=== PATIENT | male | born 1965 | race Caucasian/White ===

== ENCOUNTER 2016-09-07 09:50 | Outpatient (CLI) | payer MEDICARE ==
--- NOTE | 2016-09-07 12:15 | Magnetic Resonance Report ---
MRI LUMBAR SPINE WITHOUT CONTRAST INDICATION: Spondylosis without myelopathy or radiculopathy. COMPARISON: 08/19/2015 FINDINGS: Noncontrast multiplanar and multisequence MRI of the lumbar spine again demonstrates normal vertebral body stature and alignment. Normal conus medullaris terminating behind L2. Mild mid to lower lumbar disc degeneration. Normal paraspinal soft tissues. On the obtained axial images: T12-L1 through L3-L4 are unremarkable. AP thecal sac caliber at L3-L4 is 1.3 cm. L4-L5 suggests slight disc narrowing and loss of disc signal. Slight diffuse disc bulge though remains predominantly ventral epidural. Approximately 0.3 cm AP x 1 cm transverse midline annular fissure again noted. No significant spinal stenosis or exiting nerve root compression. AP thecal sac caliber is 1.1 cm. L5-S1 demonstrates similar changes at the level above with a 0.5 cm midline annular tear. No spinal stenosis or exiting nerve root compression. CONCLUSION: No significant interval change with L4-L5 and L5-S1 disc degeneration and annular tears, as described. Thank you for the opportunity to participate in this patient's care.
--- NOTE | 2016-09-07 13:31 | Magnetic Resonance Report ---
MRI CERVICAL SPINE WITHOUT CONTRAST INDICATION: Radiculopathy, cervical region. COMPARISON: 11/10/2014 CT. FINDINGS: Noncontrast multiplanar and multisequence MRI of the cervical spine demonstrates normal vertebral body stature, alignment and marrow signal. Intact craniocervical articulation. Normal cervicomedullary junction. No Chiari malformation. Grossly preserved discs, though slight disc bulge at C5-C6 approaches/minimally indents the cord in the midline as on axial series 3, image 18. AP cord caliber is 7 mm. Bilateral facet arthropathy at this level also suspected. Remainder more superior and inferior imaged levels are unremarkable. Normal paraspinal soft tissues. CONCLUSION: Mild C5-C6 degenerative changes; otherwise unremarkable exam. Neurologic territorial correlation may also be obtained. Thank you for the opportunity to participate in this patient's care.
== END 2016-09-07 09:51 | disposition home or self-care (01) ==
LOC: MRI 09:50
PROVIDERS: ATTEND Pain Medicine Interventional Pain Medicine
DX: M47.892 Other spondylosis, cervical region (principal); M47.816 Spondylosis without myelopathy or radiculopathy, lumbar region; M54.12 Radiculopathy, cervical region; I10 Essential (primary) hypertension; J44.9 Chronic obstructive pulmonary disease, unspecified; F41.9 Anxiety disorder, unspecified; F17.200 Nicotine dependence, unspecified, uncomplicated
CPT/HCPCS: 72141; 72148

== ENCOUNTER 2020-10-12 19:14 | Emergency (ER) | payer MEDICARE ==
[2020-10-12 19:47] VITALS: BP 145/82
[2020-10-12] MEDS ORDERED: LORazepam 2 MG/ML VIAL IV ONE (20:16)
[2020-10-12 20:26] LABS: Basophils % (Auto) 0.2 % (0.0-1.8); Eosinophils # (Auto) 0.1 K/mm3 (0.0-0.4); Eosinophils % (Auto) 1.6 % (0.0-4.3); Hematocrit 45.3 % (35.5-45.6); Hemoglobin 15.4 gm/dl (11.8-15.2); Lymphocytes # (Auto) 1.4 K/mm3 (1.2-5.4); Lymphocytes % (Auto) 25.1 % (13.4-35.0); Mean Corpuscular HGB Conc 34 % (32-34); Mean Corpuscular Volume 100 fl (84-94); Monocytes # (Auto) 0.6 K/mm3 (0.0-0.8); Monocytes % (Auto) 11.2 % (0.0-7.3); Platelet Count 186 K/mm3 (140-440); Red Blood Count 4.55 M/mm3 (3.65-5.03); Red Cell Distribution Width 14.1 % (13.2-15.2)
--- NOTE | 2020-10-12 20:30 | XRay Report ---
CHEST 1 VIEW 2018 INDICATION / CLINICAL INFORMATION: Chest Pain COMPARISON: 10/24/2018 FINDINGS: SUPPORT DEVICES: None HEART / MEDIASTINUM: No significant abnormality LUNGS / PLEURA: Moderate bilateral somewhat patchy pulmonary edema/infiltrates are seen, worse than o n the study in 2019. Findings could represent pulmonary edema but the heart is not enlarged and bilat eral pneumonitis is certainly a consideration. No pneumothorax. ADDITIONAL FINDINGS: No significant additional findings. Signer Name: Leonidas Lopez MD Signed: 10/12/2020 8:26 PM Workstation Name: [id number]
[2020-10-12 20:36] LABS: BUN/Creatinine Ratio 16; Blood Urea Nitrogen 14 mg/dL (9-20); Calcium 9.5 mg/dL (8.4-10.2); Hemolysis Index 7
--- NOTE | 2020-10-12 21:56 | Cat Scan Report ---
CTA CHEST WITH CONTRAST INDICATION / CLINICAL INFORMATION: Pt complains of severe RT side chest pain with S.O.B. [id number] 100m l. TECHNIQUE: Axial CT images were obtained through the chest after injection of 100 mL's of Omnipaque 3 50 IV contrast. 3 plane MIP and/or 3D reconstructions were produced. All CT scans at this location ar e performed using CT dose reduction for ALARA by means of automated exposure control. COMPARISON: Chest radiograph from earlier in the day FINDINGS: PULMONARY ARTERIES: No pulmonary emboli. THORACIC AORTA: No significant abnormality. HEART: No significant abnormality. CORONARY ARTERY CALCIFICATION: None. MEDIASTINUM / MARY: No significant abnormality. PLEURA: No pleural effusion. No pneumothorax. LUNGS: There are scattered groundglass opacities throughout both lungs. ADDITIONAL FINDINGS: None. UPPER ABDOMEN: No acute findings. SKELETAL STRUCTURES: No significant osseous abnormality. IMPRESSION: 1. No CT evidence for pulmonary embolism. 2. Scattered groundglass opacities throughout both lungs which can be seen with atypical infectious p rocess such as Covid pneumonia. Signer Name: Blair Beaver DO Signed: 10/12/2020 9:51 PM Workstation Name: [id number]
--- NOTE | 2020-10-12 22:28 | Emergency Department Report ---
ED General Adult HPI - General Chief complaint: Chest Pain Stated complaint: CHEST PAIN Time Seen by Provider: 10/12/20 20:11 Source: patient, EMS Mode of arrival: Stretcher Limitations: No Limitations - History of Present Illness Initial comments: The patient presents to the emergency department the chief complaint of chest pain that started 3 hours before his arrival to the emergency department. Patient dates the pain is located in middle of his chest and denies any radiation. Patient states he has bad history of PTSD and states this feels worse than his panic attacks. He states he took medications at home including Xanax to no avail. Patient also complains of mild shortness of breath. He denies abdominal pain, headache. -: Sudden Location: chest Radiation: non-radiation Severity scale (0 -10): 8 Quality: sharp Consistency: constant Improves with: none Worsens with: none Associated Symptoms: denies other symptoms Treatments Prior to Arrival: none - Related Data Home Medications Medication Instructions Recorded Confirmed Last Taken Valsartan [Diovan] 160 mg PO QDAY 04/10/13 10/24/18 05/18/15 ALPRAZolam [Xanax TAB] 1 mg PO BID PRN 10/24/18 10/24/18 Unknown Ondansetron [Zofran TAB] 4 mg PO TID PRN 10/24/18 10/24/18 Unknown Sertraline [Zoloft] 100 mg PO QDAY 10/24/18 10/24/18 Unknown metFORMIN [Glucophage] 850 mg PO BID 10/24/18 10/24/18 Unknown Oxycodone HCl/Acetaminophen 1 each PO Q6HR PRN 10/25/18 10/25/18 1 Day Ago [Percocet 10/325 mg] ~10/24/18 Allergies Allergy/AdvReac Type Severity Reaction Status Date / Time acetaminophen Allergy Itching Verified 09/25/15 06:16 [From Darvocet-N] dicyclomine HCl [From Bentyl] Allergy Unknown Verified 09/25/15 06:16 diphenhydramine HCl Allergy Unknown Verified 09/25/15 06:16 [From Benadryl] hydrocodone Allergy Itching Unverified 09/07/16 09:52 hydroxyzine Allergy Unknown Verified 09/25/15 06:16 propoxyphene napsylate Allergy Itching Verified 09/25/15 06:16 [From Darvocet-N] ED Review of Systems ROS: Stated complaint: CHEST PAIN Other details as noted in HPI Comment: All other systems reviewed and negative Constitutional: denies: chills, fever Eyes: denies: eye pain, eye discharge, vision change ENT: denies: ear pain, throat pain Respiratory: denies: cough, shortness of breath, wheezing Cardiovascular: chest pain. denies: palpitations Endocrine: no symptoms reported Gastrointestinal: denies: abdominal pain, nausea, diarrhea Genitourinary: denies: urgency, dysuria Musculoskeletal: denies: back pain, joint swelling, arthralgia Skin: denies: rash, lesions Neurological: denies: headache, weakness, paresthesias Psychiatric: denies: anxiety, depression Hematological/Lymphatic: denies: easy bleeding, easy bruising ED Past Medical Hx - Past Medical History Previous Medical History?: Yes Hx Hypertension: Yes Hx CVA: Yes Hx Heart Attack/AMI: No Hx Congestive Heart Failure: No Hx Diabetes: Yes Hx Deep Vein Thrombosis: No Hx Pulmonary Embolism: No Hx GERD: No Hx Liver Disease: No Hx Renal Disease: No Hx Sickle Cell Disease: No Hx Arthritis: No Hx Headaches / Migraines: No Hx Seizures: Yes Hx Kidney Stones: No Hx Psychiatric Treatment: Yes (Anxiety, PTSD) Hx Asthma: No Hx COPD: Yes Hx Tuberculosis: No Hx Dementia: No Hx HIV: No Additional medical history: Seizures for 8 years, high cholesterol - Surgical History Hx Coronary Stent: No Hx Open Heart Surgery: No Hx Pacemaker: No Hx Internal Defibrillator: No Hx Cholecystectomy: No Hx Appendectomy: Yes Hx Breast Surgery: No Additional Surgical History: "hand surgery" hernia repair - Social History Smoking Status: Current Every Day Smoker Substance Use Type: Prescribed - Medications Home Medications: Home Medications Medication Instructions Recorded Confirmed Last Taken Type Valsartan [Diovan] 160 mg PO QDAY 04/10/13 10/24/18 05/18/15 History ALPRAZolam [Xanax TAB] 1 mg PO BID PRN 10/24/18 10/24/18 Unknown History Ondansetron [Zofran TAB] 4 mg PO TID PRN 10/24/18 10/24/18 Unknown History Sertraline [Zoloft] 100 mg PO QDAY 10/24/18 10/24/18 Unknown History metFORMIN [Glucophage] 850 mg PO BID 10/24/18 10/24/18 Unknown History Oxycodone HCl/Acetaminophen 1 each PO Q6HR PRN 10/25/18 10/25/18 1 Day Ago History [Percocet 10/325 mg] ~10/24/18 ED Physical Exam - General Limitations: No Limitations General appearance: alert, in no apparent distress, anxious, other (Patient is severely anxious and clutching his chest on exam he is diaphoretic.) - Head Head exam: Present: atraumatic, normocephalic - Eye Eye exam: Present: normal appearance - ENT ENT exam: Present: mucous membranes dry, other (Patient is without teeth) - Neck Neck exam: Present: normal inspection - Respiratory Respiratory exam: Present: normal lung sounds bilaterally. Absent: respiratory distress - Cardiovascular Cardiovascular Exam: Present: normal rhythm, tachycardia. Absent: systolic murmur, diastolic murmur, rubs, gallop - GI/Abdominal GI/Abdominal exam: Present: soft, normal bowel sounds. Absent: distended, tenderness - Rectal Rectal exam: Present: deferred - Extremities Exam Extremities exam: Present: normal inspection - Back Exam Back exam: Present: normal inspection - Neurological Exam Neurological exam: Present: alert, oriented X3, CN II-XII intact. Absent: motor sensory deficit - Psychiatric Psychiatric exam: Present: normal affect, normal mood - Skin Skin exam: Present: warm, dry, intact, normal color. Absent: rash ED Course Vital Signs 10/12/20 10/12/20 19:46 20:21 Temperature 98.7 F Pulse Rate 89 Respiratory 24 Rate Blood Pressure 145/82 [Left] O2 Sat by Pulse 99 100 Oximetry ED Medical Decision Making - Lab Data Result diagrams: 10/12/20 19:54 10/12/20 19:54 Lab Results 10/12/20 10/12/20 10/12/20 Range/Units 19:54 19:54 20:46 WBC 5.5 (4.5-11.0) K/mm3 RBC 4.55 (3.65-5.03) M/mm3 Hgb 15.4 H (11.8-15.2) gm/dl Hct 45.3 (35.5-45.6) % MCV 100 H (84-94) fl MCH 34 H (28-32) pg MCHC 34 (32-34) % RDW 14.1 (13.2-15.2) % Plt Count 186 (140-440) K/mm3 Lymph % (Auto) 25.1 (13.4-35.0) % [place] % (Auto) 11.2 H (0.0-7.3) % Eos % (Auto) 1.6 (0.0-4.3) % Baso % (Auto) 0.2 (0.0-1.8) % Lymph # (Auto) 1.4 (1.2-5.4) K/mm3 [place] # (Auto) 0.6 (0.0-0.8) K/mm3 Eos # (Auto) 0.1 (0.0-0.4) K/mm3 Baso # (Auto) 0.0 (0.0-0.1) K/mm3 Seg Neutrophils % 61.9 (40.0-70.0) % Seg Neutrophils # 3.4 (1.8-7.7) K/mm3 Sodium 138 (137-145) mmol/L Potassium 4.1 (3.6-5.0) mmol/L Chloride 103.3 (98-107) mmol/L Carbon Dioxide 24 (22-30) mmol/L Anion Gap 15 mmol/L BUN 14 (9-20) mg/dL Creatinine 0.9 (0.8-1.3) mg/dL Estimated GFR > 60 ml/min BUN/Creatinine Ratio 16 % Glucose 100 (75-100) mg/dL Lactic Acid (0.7-2.0) mmol/L Calcium 9.5 (8.4-10.2) mg/dL Troponin T < 0.010 (0.00-0.029) ng/mL NT-Pro-B Natriuret Pep 83.31 (0-900) pg/mL 10/12/20 Range/Units 20:46 WBC (4.5-11.0) K/mm3 RBC (3.65-5.03) M/mm3 Hgb (11.8-15.2) gm/dl Hct (35.5-45.6) % MCV (84-94) fl MCH (28-32) pg MCHC (32-34) % RDW (13.2-15.2) % Plt Count (140-440) K/mm3 Lymph % (Auto) (13.4-35.0) % [place] % (Auto) (0.0-7.3) % Eos % (Auto) (0.0-4.3) % Baso % (Auto) (0.0-1.8) % Lymph # (Auto) (1.2-5.4) K/mm3 Madison # (Auto) (0.0-0.8) K/mm3 Eos # (Auto) (0.0-0.4) K/mm3 Baso # (Auto) (0.0-0.1) K/mm3 Seg Neutrophils % (40.0-70.0) % Seg Neutrophils # (1.8-7.7) K/mm3 Sodium (137-145) mmol/L Potassium (3.6-5.0) mmol/L Chloride (98-107) mmol/L Carbon Dioxide (22-30) mmol/L Anion Gap mmol/L BUN (9-20) mg/dL Creatinine (0.8-1.3) mg/dL Estimated GFR ml/min BUN/Creatinine Ratio % Glucose (75-100) mg/dL Lactic Acid 0.80 (0.7-2.0) mmol/L Calcium (8.4-10.2) mg/dL Troponin T (0.00-0.029) ng/mL NT-Pro-B Natriuret Pep (0-900) pg/mL - EKG Data -: EKG Interpreted by Me Rate: tachycardia - EKG Data Interpretation: other (There is significant mild artifact on the EKG.) - Radiology Data Radiology results: report reviewed - Medical Decision Making The patient CTA of the chest is negative for PE but shows bilateral groundglass opacities concerning for viral etiology of pneumonia Patient given 1 mg Ativan for his anxiety At 2300 hrs. patient stated he wanted to leave AMA I discussed with the patient my concern about findings on CT of his chest and thought a further work-up was warranted but the patient stated he wanted to leave AGAINST MEDICAL ADVICE. I discussed my concerns of and worsening of illness but the patient stated he was going to leave regardless. Patient was given AMA paperwork to fill out. The patient left before getting prescriptions or paperwork Critical care attestation.: If time is entered above; I have spent that time in minutes in the direct care o f this critically ill patient, excluding procedure time. ED Disposition Clinical Impression: Chest pain, Pneumonia Disposition: 07 LEFT AGAINST MEDICAL ADVICE Is pt being admited?: No Does the pt Need Aspirin: No Condition: Stable Instructions: Nonspecific Chest Pain, Adult, Bacterial Pneumonia (ED) Additional Instructions: return if worse Referrals: PRIMARY CARE, [Primary Care Provider] - 3-5 Days JEFFREY FLORENCE MD [Staff Physician] - 3-5 Days Time of Disposition: 23:11
--- NOTE | 2020-10-14 09:49 | Electrocardiograph Report ---
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 ABNORMAL BASELINE Prolonged QT interval No previous ECG available for comparison Electronically Signed On 10-14-2020 9:49:12 EDT by David Wilkes
== END 2020-10-12 23:07 | disposition left against medical advice (07) ==
LOC: ED 19:14
DX: J18.9 Pneumonia, unspecified organism (principal); R07.9 Chest pain, unspecified; I10 Essential (primary) hypertension; I63.9 Cerebral infarction, unspecified; E11.8 Type 2 diabetes mellitus with unspecified complications; F41.8 Other specified anxiety disorders; F43.10 Post-traumatic stress disorder, unspecified; J44.9 Chronic obstructive pulmonary disease, unspecified; R56.9 Unspecified convulsions; Z98.890 Other specified postprocedural states; F17.200 Nicotine dependence, unspecified, uncomplicated; Z88.3 Allergy status to other anti-infective agents; Z88.6 Allergy status to analgesic agent; Z88.5 Allergy status to narcotic agent; Z88.8 Allergy status to other drugs, medicaments and biological substances
CPT/HCPCS: 36415; 71045; 71275; 80048; 82140; 83880; 84484; 85025; 87040; 93005; 96374; 99285; J2060; Q9967

== ENCOUNTER 2021-03-09 18:00 | Emergency (ER) | payer MEDICARE ==
[2021-03-09 18:05] VITALS: BP 132/88
[2021-03-09] MEDS ORDERED: SODIUM CHLORIDE 0.9% 1000 ML 1,000 ML IV ONE ×2 (20:21→20:35)
[2021-03-09] MEDS ORDERED: VANCOMYCIN 2,000 MG in SODIUM CHLORIDE 0.9% 500 ML 500 ML IV ONE (20:33)
[2021-03-09] MEDS ORDERED: MORPHINE 4 MG/1 ML INJ IV ONE ×2 (20:35→23:24)
[2021-03-09] MEDS ORDERED: ONDANSETRON 4 MG/2 ML INJ IV ONE (20:35)
[2021-03-09] MEDS ORDERED: KETOROLAC 30 MG/1 ML INJ IV ONE (20:35)
[2021-03-09 20:56] LABS: Basophils % (Auto) 0.1 % (0.0-1.8); Eosinophils % (Auto) 0.1 % (0.0-4.3); Hemoglobin 13.3 gm/dl (11.8-15.2); Lymphocytes # (Auto) 0.2 K/mm3 (1.2-5.4); Lymphocytes % (Auto) 6.4 % (13.4-35.0); Mean Corpuscular HGB Conc 33 % (32-34); Mean Corpuscular Volume 101 fl (84-94); Monocytes # (Auto) 0.4 K/mm3 (0.0-0.8); Monocytes % (Auto) 10.5 % (0.0-7.3); Platelet Count 202 K/mm3 (140-440); Red Blood Count 3.96 M/mm3 (3.65-5.03); Red Cell Distribution Width 13.8 % (13.2-15.2)
[2021-03-09] MEDS ORDERED: LIDOCAINE (1%) 10 MG/1 ML VIAL 20 ML MDV INFILTRATI ONE ×2 (21:00→21:13)
[2021-03-09] MEDS ORDERED: VANCOMYCIN PHARMACY TO DOSE IV SCH (21:00)
[2021-03-09 21:10] LABS: Alanine Aminotransferase 21 units/L (7-56); Albumin 3.2 g/dL (3.9-5); BUN/Creatinine Ratio 16; Blood Urea Nitrogen 14 mg/dL (9-20); Calcium 9.5 mg/dL (8.4-10.2); Hemolysis Index 8
[2021-03-09 21:12] LABS: Erythrocyte Sedimentation Rate 83 mm/Hr (0-20)
[2021-03-09] MEDS ORDERED: KETOROLAC 60 MG/2 ML INJ IM ONE (21:32)
--- NOTE | 2021-03-09 21:35 | XRay Report ---
RIGHT TIBIA-FIBULA 2 VIEW(S) INDICATION / CLINICAL INFORMATION: lower leg pain COMPARISON: None available. FINDINGS: BONES / JOINT(S): Plate-screw fixation is noted of the proximal tibia. There is a tibial plateau frac ture, presumably the reason for the a fore mentioned surgical change. There is a moderate joint effus ion. SOFT TISSUES: No significant abnormality. ADDITIONAL FINDINGS: None. Signer Name: Blair Beaver DO Signed: 03/09/2021 9:31 PM Workstation Name: [id number]
--- NOTE | 2021-03-09 23:33 | Emergency Department Report ---
ED Extremity Problem HPI - General Chief complaint: Extremity Injury, Lower Stated complaint: RIGHT LEG INFECTION Time Seen by Provider: 03/09/21 20:25 Source: patient, EMS Mode of arrival: Stretcher Limitations: No Limitations - History of Present Illness Initial comments: Patient is a 56-year-old male with a past medical history of hypertensi on and diabetes who is 2 to 3 weeks status post tibial plateau fracture repair on his right knee who is presenting with right lateral calf pain and swelling. Patient states over the last 5 days he has had area of swelling and redness and pain just below the right knee extending down through the lateral right calf. States he has pain with weightbearing. States there was a large area of swelling that he cut open with a razor and drained a large amount of purulent material. Area of redness has worsened. Patient states he has some general swelling to his knee as well but the erythema is contained below the right knee and lateral calf. States he has had some chills but denies any objective fevers. No nausea or vomiting. Pain estimated 8 out of 10 in severity. Patient states he did suffer a fall 2 days ago again feels like something may have been rebroken Severity scale (0 -10): 4 - Related Data Home Medications Medication Instructions Recorded Confirmed Last Taken Valsartan [Diovan] 160 mg PO QDAY 04/10/13 10/24/18 05/18/15 ALPRAZolam [Xanax TAB] 1 mg PO BID PRN 10/24/18 10/24/18 Unknown Ondansetron [Zofran TAB] 4 mg PO TID PRN 10/24/18 10/24/18 Unknown Sertraline [Zoloft] 100 mg PO QDAY 10/24/18 10/24/18 Unknown metFORMIN [Glucophage] 850 mg PO BID 10/24/18 10/24/18 Unknown Oxycodone HCl/Acetaminophen 1 each PO Q6HR PRN 10/25/18 10/25/18 1 Day Ago [Percocet 10/325 mg] ~10/24/18 Previous Rx's Medication Instructions Recorded Last Taken Type Albuterol Mdi (or & Nicu Only) 2 puff IH Q4HR PRN #1 inhalation 10/12/20 Unknown Rx [ProAir HFA Inhaler] Azithromycin [Zithromax Z-IZZY] 250 mg PO DAILY #6 tablet 10/12/20 Unknown Rx predniSONE [Deltasone] 20 mg PO DAILY #15 tablet 10/12/20 Unknown Rx Allergies Allergy/AdvReac Type Severity Reaction Status Date / Time acetaminophen Allergy Itching Verified 09/25/15 06:16 [From Darvocet-N] dicyclomine HCl [From Bentyl] Allergy Unknown Verified 09/25/15 06:16 diphenhydramine HCl Allergy Unknown Verified 09/25/15 06:16 [From Benadryl] hydrocodone Allergy Itching Unverified 09/07/16 09:52 hydroxyzine Allergy Unknown Verified 09/25/15 06:16 propoxyphene napsylate Allergy Itching Verified 09/25/15 06:16 [From Darvocet-N] ED Review of Systems ROS: Stated complaint: RIGHT LEG INFECTION Other details as noted in HPI Comment: All other systems reviewed and negative ED Past Medical Hx - Past Medical History Previous Medical History?: Yes Hx Hypertension: Yes Hx CVA: Yes Hx Heart Attack/AMI: No Hx Congestive Heart Failure: No Hx Diabetes: Yes Hx Deep Vein Thrombosis: No Hx Pulmonary Embolism: No Hx GERD: No Hx Liver Disease: No Hx Renal Disease: No Hx Sickle Cell Disease: No Hx Arthritis: No Hx Headaches / Migraines: No Hx Seizures: Yes Hx Kidney Stones: No Hx Psychiatric Treatment: Yes (Anxiety, PTSD) Hx Asthma: No Hx COPD: Yes Hx Tuberculosis: No Hx Dementia: No Hx HIV: No Additional medical history: Seizures for 8 years, high cholesterol - Surgical History Hx Coronary Stent: No Hx Open Heart Surgery: No Hx Pacemaker: No Hx Internal Defibrillator: No Hx Cholecystectomy: No Hx Appendectomy: Yes Hx Breast Surgery: No Additional Surgical History: "hand surgery" hernia repair - Social History Smoking Status: Current Every Day Smoker Substance Use Type: Prescribed - Medications Home Medications: Home Medications Medication Instructions Recorded Confirmed Last Taken Type Valsartan [Diovan] 160 mg PO QDAY 04/10/13 10/24/18 05/18/15 History ALPRAZolam [Xanax TAB] 1 mg PO BID PRN 10/24/18 10/24/18 Unknown History Ondansetron [Zofran TAB] 4 mg PO TID PRN 10/24/18 10/24/18 Unknown History Sertraline [Zoloft] 100 mg PO QDAY 10/24/18 10/24/18 Unknown History metFORMIN [Glucophage] 850 mg PO BID 10/24/18 10/24/18 Unknown History Oxycodone HCl/Acetaminophen 1 each PO Q6HR PRN 10/25/18 10/25/18 1 Day Ago History [Percocet 10/325 mg] ~10/24/18 Albuterol Mdi (or & Nicu Only) 2 puff IH Q4HR PRN #1 inhalation 10/12/20 Unknown Rx [ProAir HFA Inhaler] Azithromycin [Zithromax Z-IZZY] 250 mg PO DAILY #6 tablet 10/12/20 Unknown Rx predniSONE [Deltasone] 20 mg PO DAILY #15 tablet 10/12/20 Unknown Rx ED Physical Exam - General Limitations: No Limitations General appearance: alert, in no apparent distress - Head Head exam: Present: atraumatic, normocephalic - Eye Eye exam: Present: normal appearance - ENT ENT exam: Present: mucous membranes moist - Neck Neck exam: Present: normal inspection - Respiratory Respiratory exam: Present: normal lung sounds bilaterally. Absent: respiratory distress, wheezes, rales - Cardiovascular Cardiovascular Exam: Present: regular rate, normal rhythm, normal heart sounds. Absent: systolic murmur, diastolic murmur, rubs, gallop - GI/Abdominal GI/Abdominal exam: Present: soft, normal bowel sounds. Absent: distended, tenderness, guarding, rebound - Rectal Rectal exam: Present: deferred - Extremities Exam Extremities exam: Present: normal inspection - Expanded Lower Extremity Exam Right 1 - Large area of erythema induration and warmth with small open area at the superior portion that does have a trail of dried purulent material. No current fluctuant areas. 2 - Generalized effusion to the right knee which is mild to moderate clinically - Back Exam Back exam: Present: normal inspection - Neurological Exam Neurological exam: Present: alert, oriented X3 - Psychiatric Psychiatric exam: Present: normal affect, normal mood - Skin Skin exam: Present: warm, dry, intact, normal color. Absent: rash ED Course Vital Signs 03/09/21 18:02 Temperature 98.7 F Pulse Rate 100 H Respiratory 18 Rate Blood Pressure 132/88 [Left] O2 Sat by Pulse 99 Oximetry ED Medical Decision Making - Lab Data Result diagrams: 03/09/21 20:35 03/09/21 20:35 Lab Results 03/09/21 03/09/21 03/09/21 Range/Units 20:35 20:35 20:35 WBC 3.7 L (4.5-11.0) K/mm3 RBC 3.96 (3.65-5.03) M/mm3 Hgb 13.3 (11.8-15.2) gm/dl Hct 40.0 (35.5-45.6) % MCV 101 H (84-94) fl MCH 34 H (28-32) pg MCHC 33 (32-34) % RDW 13.8 (13.2-15.2) % Plt Count 202 (140-440) K/mm3 Lymph % (Auto) 6.4 L (13.4-35.0) % Miller % (Auto) 10.5 H (0.0-7.3) % Eos % (Auto) 0.1 (0.0-4.3) % Baso % (Auto) 0.1 (0.0-1.8) % Lymph # (Auto) 0.2 L (1.2-5.4) K/mm3 Miller # (Auto) 0.4 (0.0-0.8) K/mm3 Eos # (Auto) 0.0 (0.0-0.4) K/mm3 Baso # (Auto) 0.0 (0.0-0.1) K/mm3 Seg Neutrophils % 82.9 H (40.0-70.0) % Seg Neutrophils # 3.1 (1.8-7.7) K/mm3 ESR 83 (0-20) mm/Hr Sodium 128 L (137-145) mmol/L Potassium 3.4 L (3.6-5.0) mmol/L Chloride 91.5 L (98-107) mmol/L Carbon Dioxide 22 (22-30) mmol/L Anion Gap 18 mmol/L BUN 14 (9-20) mg/dL Creatinine 0.9 (0.8-1.3) mg/dL Estimated GFR > 60 ml/min BUN/Creatinine Ratio 16 % Glucose 152 H (75-100) mg/dL Lactic Acid 2.00 (0.7-2.0) mmol/L Calcium 9.5 (8.4-10.2) mg/dL Total Bilirubin 0.30 (0.1-1.2) mg/dL AST 32 (5-40) units/L ALT 21 (7-56) units/L Alkaline Phosphatase 129 (35-129) units/L C-Reactive Protein 25.10 H (0.00-1.30) mg/dL Total Protein 8.0 (6.3-8.2) g/dL Albumin 3.2 L (3.9-5) g/dL Albumin/Globulin Ratio 0.7 % - Radiology Data Ordering Physician: FATIMAH CALLE MD Date of Service: 03/09/21 Procedure(s): CT abdomen pelvis wo con Accession Number(s): [id number] cc: FATIMAH CALLE MD CT ABDOMEN AND PELVIS WITHOUT CONTRAST INDICATION / CLINICAL INFORMATION: diarrhea. abd pain. TECHNIQUE: Axial CT images were obtained through the abdomen and pelvis without IV contrast. All CT scans at this location are performed using CT dose reduction for [employer] by means of automated exposure control. COMPARISON: None available. FINDINGS: LOWER CHEST: No significant abnormality. AORTA / ARTERIES: Mild atherosclerotic calcification without acute abnormality. IVC / VEINS: No significant abnormality. LYMPH NODES: No significant adenopathy. COLON: There is mild fatty infiltration of the wall of the ascending colon and ileocecal valve APPENDIX: Not visualized. STOMACH / SMALL BOWEL: No significant abnormality. PERITONEUM: No free fluid. No free air. No fluid collection. LIVER: No significant abnormality. GALLBLADDER: No significant abnormality. BILE DUCTS: No significant abnormality. PANCREAS: No significant abnormality. SPLEEN: No significant abnormality. ADRENALS: No significant abnormality. RIGHT KIDNEY / URETER: Renal cyst. No hydronephrosis. Mild atrophic appearance of the kidney. LEFT KIDNEY / URETER: Renal cyst. No hydronephrosis. Mildly atrophic appearance kidney. URINARY BLADDER: No significant abnormality. REPRODUCTIVE ORGANS: No significant abnormality. SKELETAL SYSTEM: No significant abnormality. ADDITIONAL FINDINGS: None. IMPRESSION: 1. There is mild fatty infiltration of the colonic wall of the ascending colon and ileocecal valve, correlate for possible inflammatory bowel disease. 2. There is mild atherosclerotic disease, as well as atrophic appearance of bilateral kidneys. This appears advanced for patient's age. Correlate for diabetes. Signer Name: Blair Beaver DO Signed: 03/09/2021 9:22 PM Workstation Name: [id number] Ultrasound Doppler of the right lower extremity shows no evidence of acute DVT - Medical Decision Making Patient a 56-year-old gentleman who was complaining of some redness warmth tenderness from the area just inferior to the right knee extending down to the lateral calf on the right. This is consistent with a large area of cellulitis with likely an abscess that is already drained. On the medial aspect of the knee there is some area of effusion. Attempted to drain some fluid to make sure that the area of infection is not extended into the joint capsule was unable to obtain any fluid. Looking at the x-ray there is very little effusion present. The erythema does not wrap around the knee do not believe the patient has a septic joint. Patient's white count is normal and he is afebrile. CRP is elevated and I do believe the patient will warrant at least observation for IV antibiotics. Patient also has some electrolyte abnormalities as his sodium and chloride levels are low. Patient to be admitted to the hospitalist service. Critical care attestation.: If time is entered above; I have spent that time in minutes in the direct care of this critically ill patient, excluding procedure time. ED Disposition Clinical Impression: Hyponatremia, Diabetes mellitus Cellulitis Qualifiers: Site of cellulitis: extremity Site of cellulitis of extremity: lower extremity Laterality: right Qualified Code(s): L03.115 - Cellulitis of right lower limb Disposition: ADMITTED INPATIENT Is pt being admited?: Yes Does the pt Need Aspirin: No Condition: Stable Instructions: Diabetes Mellitus Type 2 in Adults (ED) Referrals: PRIMARY CARE, [Primary Care Provider] - 3-5 Days Time of Disposition: 23:51
--- NOTE | 2021-03-09 23:38 | Vascular Lab Report ---
DUPLEX DOPPLER LOWER EXTREMITY VEINS, RIGHT INDICATION: swelling recent surgery. TECHNIQUE: Duplex doppler imaging was performed through the veins of the right lower extremity using venous comp ression and other maneuvers. COMPARISON: No relevant prior imaging study available. FINDINGS: Right Common femoral vein: Negative. Right Superficial femoral vein: Negative. Right Popliteal vein: Negative. Right Calf veins: Negative. Additional findings: None.. IMPRESSION: 1. No sonographic evidence for DVT in the right lower extremity. Signer Name: Bassam Black MD Signed: 03/09/2021 11:33 PM Workstation Name: [id number]
== END 2021-03-10 02:15 | disposition admitted as inpatient to this hospital (09) ==
LOC: ED 18:00
DX: E87.1 Hypo-osmolality and hyponatremia (principal); E11.8 Type 2 diabetes mellitus with unspecified complications; L03.115 Cellulitis of right lower limb; F17.200 Nicotine dependence, unspecified, uncomplicated; Z88.6 Allergy status to analgesic agent; Z88.8 Allergy status to other drugs, medicaments and biological substances; Z88.5 Allergy status to narcotic agent; I10 Essential (primary) hypertension
CPT/HCPCS: 36415; 73590; 80053; 82140; 85025; 85652; 86140; 87040; 93971; 96365; 96366; 96368; 96372; 96375; 96376; 99285; J1885; J2270; J2405; J3370; J3490; J7030; J7040; J7502; 99284; Q0162

== ENCOUNTER 2021-03-29 19:47 | Emergency (ER) | payer MEDICARE ==
[2021-03-29 20:06] VITALS: BP 174/114
== END 2021-03-29 20:05 | disposition left against medical advice (07) ==
LOC: ED 19:47
DX: M79.604 Pain in right leg (principal); Z53.21 Procedure and treatment not carried out due to patient leaving prior to being seen by health care provider